=== PATIENT | female | born 1990 | race Caucasian/White ===

== ENCOUNTER 2016-05-02 21:16 | Emergency (ER) | payer OTHER ==
--- NOTE | ~2016-05-02 | CR229 ---
[facility] A Service of [facility] RADIOLOGY TEXT RESULTS PATIENT: ANA PRICE LOCATION: [facility] : [birth year] UNIT #: [id number] AGE: [address]: Karolina Marti APRN SEX: F ORDER DR: [id number] [facility] [address] [place], [place] [address] [id number] MR#: [id number] Acc #: [id number] NAME: ANA PRICE. : 1990 SEX: F STUDY DATE/TIME: 05/02/2016 21:40 UNIT: [facility] ROOM: STUDY DESCRIPTION: CR Shoulder Min 2 View Lt Attending Physician: Karolina Marti A.P.R.N. Ordering Physician: Karolina Marti A.P.R.N. Primary Care Physician: Karl Reynolds M.D. MEDICAL IMAGING REPORT This report is preliminary unless electronic signature is present EXAM Left shoulder HISTORY Left should pain for 2 days. FINDINGS AP view with internal and external rotation of the shoulder girdle shows satisfactory relationship of the humeral head and glenoid fossa. The joint space is normal. There is no identifiable fracture or dislocation or bony destructive process about the shoulder girdle anatomy. The acromioclavicular joint is normal. There is no radiopaque foreign body in the region. IMPRESSION Normal shoulder. Dictated by... Nacho Multani M.D. THIS IS AN ELECTRONICALLY VERIFIED REPORT Nacho Multani M.D. at 05/03/2016 4:33 PM CHANTAL/joseph TD: 05/03/2016 15:19 JOB #: [id number] MEDICAL IMAGING REPORT COPY
[~2016-05-02 21:16] MED LIST: ALBUTEROL17 GM INH; AZURETTE 28 DA1 EACH PO; BACTRIM DS TABL1 TA1 PO; BIRTH CONTROL PILL PO; CLARITIN10 M3 PO; DICLOFENAC PO; FLAGYL PO; FLEXERIL10 MG PO; IBUPROFEN400 MG PO; IBUPROFEN600 MG PO; KEFLEX500 MG PO; LIDOCAINE VISCOU1 ML TOP; MAGIC MOUTHWASH PO; MEDROL PO; NAPROXEN375 MG PO; NO MEDICATIONS; PHENERGAN PO; PRENAPLUS TABL1 EACH PO; PRENATA CHEWAB1 EAC1 PO; ROBITUSSIN A-C S5 ML PO; ROBITUSSIN A-C10 ML PO; TYLENOL #3 PO; VALTREX PO; VIBRAMYCIN100 M1 PO; VOLTAREN75 MG PO; ZITHROMAX PO; ZITHROMAX500 MG PO
== END 2016-05-02 22:00 | disposition home or self-care (01) ==
LOC: CFTX 21:16
DX: S43.402A Unspecified sprain of left shoulder joint, initial encounter (principal); S41.009A Unspecified open wound of unspecified shoulder, initial encounter; Z88.0 Allergy status to penicillin; Z88.5 Allergy status to narcotic agent; Z79.899 Other long term (current) drug therapy; X50.9XXA Other and unspecified overexertion or strenuous movements or postures, initial encounter; Y92.9 Unspecified place or not applicable
CPT/HCPCS: 73030; 99283